=== PATIENT | female | born 1975 | race Caucasian/White ===

== ENCOUNTER 2018-11-26 19:12 | Emergency (ER) | payer MEDICAID ==
[2018-11-26] MEDS ORDERED: 0.9 % SODIUM CHLORIDE 1,000 ML BAG IV ONE (19:22)
[2018-11-26] MEDS ORDERED: 0.9 % SODIUM CHLORIDE 1000ML 1,000 ML IV ONE (19:22)
[2018-11-26] MEDS ORDERED: KETOROLAC 30 MG/ML VIAL IVP ONE (19:22)
--- NOTE | 2018-11-26 19:27 | Emergency Department Record ---
History of Present Illness - General Chief Complaint: Back Pain/Injury Stated Complaint: LOWER BACK AND ABD PAIN Time Seen by Provider: 11/26/18 19:13 Source: Patient Mode of Arrival: Ambulatory Limitations: No limitations - History of Present Illness Initial Comments: 43 yo female presents with three days of increasing back and now pelvic pain. No injury. No fever. No vomiting or diarrhea. The ache spreads around the back to the abdomen on both sides but mostly the left. No prior abdominal surgery. She denies vaginal bleeding but has discharge. She treated with monostat without resolution. Just moved here. No PCP. MD Complaint: Back pain, Other (Pelvic and abdominal pain) Onset/Timin -: Days(s) Similar Symptoms Previously: No Radiation: Other Severity scale (1-10): 7 Quality: Aching Consistency: Constant, Getting worse Worsens With: Movement, Sitting upright, Walking Associated Symptoms: Abdominal pain - Related Data Previous Rx's Medication Instructions Recorded Doxycycline Hyclate 100 mg PO BID #10 cap 11/26/18 Metronidazole [Flagyl] 500 mg PO Q8H #30 tablet 11/26/18 Naproxen [Naprosyn] 500 mg PO Q12H #20 tab. 11/26/18 Ondansetron [Zofran Odt] 4 mg PO Q6H #20 tab.[email or web address] 11/26/18 Allergies Allergy/AdvReac Type Severity Reaction Status Date / Time divalproex sodium Allergy ANAPHYLAXIS Verified 11/26/18 21:00 [From Depakote] methylprednisolone Allergy ANAPHYLAXIS Verified 11/26/18 21:00 [From Depo-Medrol] Travel Screening - Travel/Exposure Within Last 30 Days Have you traveled within the last 30 days?: No - Travel Symptoms Symptom Screening: None Review of Systems Constitutional: Denies: Chills, Fever, Malaise, Weakness Eyes: Denies: Eye discharge, Eye pain, Vision change ENT: Denies: Congestion, Throat pain Respiratory: Denies: Cough, Dyspnea Cardiovascular: Denies: Chest pain, Palpitations, Syncope Endocrine: Denies: Fatigue, Polydipsia, Polyuria Gastrointestinal: Reports: Abdominal pain, Nausea. Denies: Constipation, Diarrhea, Hematemesis, Hematochezia, Melena, Vomiting Genitourinary: Reports: Abnormal menses (Months since the last). Denies: Dysuria, Frequency, Hematuria, Urgency Musculoskeletal: Reports: Back pain, Myalgia. Denies: Neck pain Skin: Denies: Bruising, Change in color, Rash Neurological: Denies: Headache Psychiatric: Denies: Anxiety Hematological/Lymphatic: Denies: Easy bleeding, Easy bruising Physical Exam - General General Appearance: Alert, Oriented x3, Cooperative, No acute distress Limitations: No limitations - Head Head exam: Atraumatic, Normal inspection - Eye Eye exam: Normal appearance. negative: Conjunctival injection - ENT ENT exam: Normal exam, Mucous membranes moist Ear exam: Normal external inspection Nasal Exam: Normal inspection Mouth exam: Normal external inspection - Neck Neck exam: Normal inspection - Respiratory Respiratory exam: Normal lung sounds bilaterally. negative: Respiratory d istress - Cardiovascular Cardiovascular Exam: Regular rate, Normal rhythm, Normal heart sounds - GI/Abdominal GI/Abdominal exam: Soft, Normal bowel sounds, Tenderness (Very soft abdomen but tender in the left LLQ). negative: Distended, Guarding, Hernia, Rebound, Rigid - Rectal Rectal exam: Deferred - exam: Adnexal tenderness (L), Adnexal tenderness (R), cervical motion tenderness, Vaginal discharge, Vaginal erythema. negative: Abnormal external exam, Adnexal mass (L), Adnexal mass (R), Cervical discharge, Vaginal bleeding - Extremities Extremities exam: Normal inspection. negative: Pedal edema, Tenderness - Back Back exam: Reports: CVA tenderness (R), CVA tenderness (L), Muscle spasm, Tenderness. Denies: Rash noted - Neurological Neurological exam: Alert, Oriented X3 - Psychiatric Psychiatric exam: Normal affect, Normal mood. negative: Agitated, Anxious - Skin Skin exam: Dry, Intact, Normal color, Warm Course Vital Signs 11/26/18 11/26/18 19:17 19:18 Temperature 98.0 F Pulse Rate [ 76 Right] Respiratory 20 Rate Blood Pressure 120/83 [Left Arm] Pulse Ox 100 - Reevaluation(s) Reevaluation #1: 11/26/18 20:15 The labs results were reviewed There are no acute significant abnormalities of the CBC There are no acute significant abnormalities of the CMP 11/26/18 22:[address] scan was reviewed. No acute abdominal process. NS lymph nodes. We discussed the results. Given the pelvic tenderness and discharge I recommend antibiotics She will be given a referral to FP at [facility] We discussed the results of the tests and questions were answered at the time of discharge. The patient is doing well and is comfortable with DC. Given her discharge and pelvic tenderness Flagyl and Doxycycline were provided with a prescription DC vitals were reviewed. We discussed at length reasons to immediately return to the ED as well as close follow up. 11/27/18 01:47 Medical Decision Making - Lab Data Result diagrams: 11/26/18 19:43 11/26/18 19:43 Disposition Disposition: Discharge Clinical Impression: Pelvic pain, Vaginal discharge Disposition: Home, Self-Care Condition: (1) Good Additional Instructions: Call for a new doctor for the next available follow up appointment [facility] Review this ER visit and the tests performed with your new family doctor Return to the ER for a recheck if worse, any new concerns or questions Take the prescriptions provided as directed Prescriptions: Doxycycline Hyclate 100 mg PO BID #10 cap Metronidazole [Flagyl] 500 mg PO Q8H #30 tablet Naproxen [Naprosyn] 500 mg PO Q12H #20 tab. Ondansetron [Zofran Odt] 4 mg PO Q6H #20 tab.kiera Referrals: HAM JOSEPH M.D. [MEDICAL DOCTOR] - Forms: Patient Portal Access Time of Disposition: 22:46 Quality - Quality Measures Quality Measures: N/A - Blood Pressure Screening Does Patient Have Any of the Following: No Blood Pressure Classification: Pre-Hypertensive BP Reading Systolic Measurement: 107 Diastolic Measurement: 81 Screening for High Blood Pressure: < Pre-Hypertensive BP, F/U Documented > [G8950] Pre-Hypertensive Follow-up Interventions: Referral to alternative/primary care provider.
[2018-11-26 19:52] LABS: ABSOLUTE NEUTROPHIL COUNT 4.83; BASO % 0.5 % (0-6); EOS % 3.1 % (0-6); GRAN % 57.4 % (47-80); HEMATOCRIT 37.6 % (35.0-47.0); HEMOGLOBIN 12.2 gm/dl (11.6-16.0); LYMPH % 30.1 % (16-45); MEAN CELL VOLUME 89.5 fl (81-97); MEAN CORPUSCULAR HGB CONC 32.4 g/dl (32-36); MEAN PLATELET VOLUME 10.7 fl (7.4-10.4); MONO % 8.9 % (0-9); PLATELET COUNT 300 K/uL (130-400); RED CELL DISTRIBUTION WIDTH 13.6 % (11.5-14.5); WHITE BLOOD COUNT W/O DIFF 8.4 K/uL (4.2-12.2)
[2018-11-26] MEDS ORDERED: ONDANSETRON HCL IV 4 MG/2 ML VIAL IVP ONE (19:55)
[2018-11-26 19:58] LABS: HCG,QUALITATIVE URINE NEGATIVE (NEGATIVE); URINE APPEARANCE CLEAR; URINE BILIRUBIN NEGATIVE (NEGATIVE); URINE BLOOD TRACE-LYSED (NEGATIVE); URINE COLOR YELLOW; URINE GLUCOSE (UA) NEGATIVE (NEGATIVE); URINE KETONE NEGATIVE (NEGATIVE); URINE LEUKOCYTE ESTERASE MODERATE (NEGATIVE); URINE NITRITE NEGATIVE (NEGATIVE); URINE PROTEIN NEGATIVE (NEGATIVE); URINE UROBILINOGEN 0.2 E.U./dL (0.20 - 1.00)
[2018-11-26 20:03] LABS: BLOOD UREA NITROGEN 11 mg/dL (6-20); CREATININE 0.7 mg/dL (0.5-0.9); EST GLOMERULAR FILTRATION RATE > 60 mL/min
[2018-11-26 20:04] LABS: LIPASE 28 U/L (13-60); TOTAL PROTEIN 7.3 g/dL (6.6-8.7)
[2018-11-26 20:05] LABS: URINE BACTERIA NONE SEEN; URINE RBC 0 - 2 (NONE SEEN)
[2018-11-26 20:06] LABS: GLUCOSE,RANDOM 92 mg/dL (74-109)
[2018-11-26 20:08] LABS: ALT/SGPT 10 U/L (<33); AST/SGOT 13 U/L (10.0-35.0)
[2018-11-26 20:09] LABS: ALB/GLOB RATIO 1.4 (1.1-1.8); ALBUMIN 4.2 g/dL (4.0-5.0); ALKALINE PHOSPHATASE 107 U/L (35-104)
[2018-11-26] MEDS ORDERED: DOXYCYCLINE HYCLATE 100 MG CAPSULE PO ONE (22:36)
[2018-11-26] MEDS ORDERED: METRONIDAZOLE 250 MG TABLET PO ONE (22:36)
--- NOTE | 2018-11-28 00:44 | CT SCAN REPORT ---
EXAM: CT SCAN ABDOMEN/PELVIS W CONTRAST HISTORY: LOWER ABDOMINAL PAIN AND LEFT LOWER BACK PAIN. TECHNIQUE: CT of the abdomen and pelvis performed following intravenous and oral contrast administration. COMPARISON: None. FINDINGS: The lung bases are unremarkable. The liver and spleen are unremarkable. No pancreatic mass or inflammatory change. The bile ducts are not dilated. No adrenal lesion seen. There is bilateral renal function. There is no renal mass or hydronephrosis. There are no renal or ureteral calculi. There is no aortic aneurysm. No periaortic mass or adenopathy. There are no dilated bowel loops. There is no pelvic mass, abscess, or adenopathy. There is no free air or free fluid identified. No lytic or blastic bone lesion. No fracture identified. There are arthritic changes in the lower lumbar spine. Nonspecific lymph nodes are seen along the inguinal chain and in the inguinal regions. IMPRESSION: 1. NO ACUTE ABDOMINAL OR PELVIC PROCESS IDENTIFIED. 2. ARTHRITIC CHANGES LOWER LUMBAR SPINE. 3. NONSPECIFIC LYMPH NODES ALONG THE ILIAC CHAINS AND IN THE INGUINAL REGIONS BILATERALLY. JOB NUMBER: [id number] [facility]
[2018-11-29 14:44] LABS: GC SPECIMEN TYPE Vaginal
== END 2018-11-26 22:59 | disposition home or self-care (01) ==
LOC: ER 19:12
DX: R10.2 Pelvic and perineal pain (principal); N89.8 Other specified noninflammatory disorders of vagina
CPT/HCPCS: 99285; 96374; 96375; 99284; 83690; 85025; 80053; 81001; 81025; 74177; Q0111; Q9967; J1885; J2405; 87210; J7030